=== PATIENT | male | born 2000 | race Caucasian/White ===

== ENCOUNTER 2021-01-28 18:21 | Emergency (ER) | payer BC ==
--- NOTE | 2021-01-28 19:07 | EDM.PDOC ---
ED HPI GENERAL MEDICAL PROBLEM - General Chief Complaint: Respiratory Problem Stated Complaint: COVID SX Time Seen by Provider: 01/28/21 19:07 Source of Information: Reports: Patient History Limitations: Reports: No Limitations - History of Present Illness INITIAL COMMENTS - FREE TEXT/NARRATIVE: 20-year-old male presents to the ED with nasal congestion mild rhinorrhea sore throat for the last 3 days. Today's developed more heaviness in his upper chest and a mild nonproductive cough. Not aware per se of any fever or chills. Appetite is intact with no diarrhea nausea or vomiting. 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 His girlfriend works in healthcare and has been vaccinated. Onset: Gradual Onset Date: 01/25/21 (On third day of nasal congestion and runny nose. Sore throat over the last 2 days) Duration: Day(s):, Getting Worse Location: Reports: Chest (Mild upper anterior chest discomfort with nonproductive cough intermittently) Severity: Mild Improves with: Reports: None Worsens with: Reports: None Context: Denies: Activity, Exercise, Lifting, Sick Contact, Trauma, Other Associated Symptoms: Reports: Chest Pain, Cough (Nonproductive). Denies: No Other Symptoms (Upper anterior chest discomfort), Confusion, cough w sputum, Diaphoresis, Fever/Chills, Headaches, Loss of Appetite, Malaise, Rash, Seizure, Shortness of Breath, Syncope Treatments CLOTH REELER: Reports: Other (see below) (None) Throat Pain Score (Numeric/FACES): 3 - Related Data Allergies Allergy/AdvReac Type Severity Reaction Status Date / Time No Known Allergies Allergy Verified 01/28/21 18:46 Home Meds: Home Meds . [No Known Home Meds] 01/28/21 [History] Past Medical History - Past Health History Medical/Surgical History: Denies Medical/Surgical History - Infectious Disease History Infectious Disease History: Reports: Chicken Pox - Past Surgical History HEENT Surgical History: Reports: Tonsillectomy Social & Family History - Tobacco Use Tobacco Use Status *Q: Current Every Day Tobacco User (In the process of quitting. Currently vaping.) Years of Tobacco use: 2 Packs/Tins Daily: 0.1 - Caffeine Use Caffeine Use: Reports: Energy Drinks, Soda - Recreational Drug Use Recreational Drug Use: No - Living Situation & Occupation Living situation: Reports: Single Occupation: Employed ED ROS GENERAL - Review of Systems Review Of Systems: See Below Constitutional: Reports: Fatigue. Denies: Fever, Chills, Malaise, Weakness, Decreased Appetite, Weight Loss HEENT: Reports: Rhinitis, Sinus Problem, Throat Pain (Nasal congestion sinus congestion throat pain) Respiratory: Reports: Cough (Mild nonproductive cough that started earlier today.) Cardiovascular: Reports: Chest Pain (Upper anterior chest discomfort no true pain). Denies: Blood Pressure Problem Endocrine: Reports: Fatigue GI/Abdominal: Reports: No Symptoms (Mild) : Reports: No Symptoms Musculoskeletal: Reports: No Symptoms Skin: Reports: No Symptoms Neurological: Reports: No Symptoms Psychiatric: Reports: No Symptoms Hematologic/Lymphatic: Reports: No Symptoms Immunologic: Reports: No Symptoms ED EXAM, GENERAL - Physical Exam Exam: See Below Exam Limited By: No Limitations General Appearance: Alert, WD/WN, No Apparent Distress, Other (Temperature is 36.6 degrees heart rate 77 and sinus respiratory is 20 with O2 sats of 97% room air. BP 137/82) Eye Exam: Bilateral Eye: Normal Inspection (No blepharal pallor no scleral icterus), PERRL Ears: Normal TMs Nose: Nasal Drainage (Mild. Clear) Throat/Mouth: Normal Inspection, Normal Lips, Normal Teeth, Other Head: Atraumatic (Oropharynx is mildly erythematous without exudate no signs of bacterial infection), Normocephalic Neck: Normal Inspection, Supple, Non-Tender, Full Range of Motion. No: Lymphadenopathy (L), Lymphadenopathy (R) Respiratory/Chest: No Respiratory Distress, Lungs Clear, Normal Breath Sounds, No Accessory Muscle Use Cardiovascular: Normal Peripheral Pulses, Regular Rate, Rhythm, No Edema, No Gallop, No Murmur, No Rub Peripheral Pulses: 3+: Carotid (L), Carotid (R), Posterior Tibial (L), Posterior Tibial (R), Dorsalis Pedis (L), Dorsalis Pedis (R) GI/Abdominal: Normal Bowel Sounds, Soft, Non-Tender, No Organomegaly, No Distention, No Abnormal Bruit, Pelvis Stable Back Exam: Normal Inspection, Full Range of Motion. No: CVA Tenderness (L), CVA Tenderness (R) Extremities: Normal Inspection, Normal Range of Motion, Non-Tender, No Pedal Edema Neurological: Alert, Oriented, CN II-XII Intact, Normal Cognition Psychiatric: Normal Affect, Normal Mood Skin Exam: Warm, Dry, Intact, Normal Color, No Rash Course - Vital Signs Last Recorded V/S: Last Vital Signs Temp 36.6 C 01/28/21 18:49 Pulse 77 01/28/21 18:49 Resp 20 01/28/21 18:49 BP 137/82 01/28/21 18:49 Pulse Ox 97 01/28/21 18:49 - Orders/Labs/Meds Orders: Active Orders 24 hr Category Date Time Status Chest 1V Frontal [CR] Stat Exams 01/28/21 19:14 Taken Labs: Laboratory Tests 01/28/21 Range/Units 18:40 SARS-CoV-2 RNA (DIANA) Negative (NEGATIVE) - Radiology Interpretation Free Text/Narrative:: 20-year-old male presents to the ED with nasal congestion for the last 3 days and developing sore throat over the last 2 days. Mild upper anterior chest discomfort started today with a nonproductive cough. Not febrile at present and he did not appreciate a fever at home. Appetite is intact with no vomiting or diarrhea. Cold symptoms versus early COVID-19 illness. His girlfriend works in healthcare and therefore he wants to know for sure if he has Covid. Coronavirus has been collected by triage nurse. He will have 1 view anterior chest x-ray done. - Re-Assessments/Exams Free Text/Narrative Re-Assessment/Exam: 01/28/21 20:09 COVID-19 screen is negative. Chest x-ray reveals no cardiomegaly and mediastinum is normal. Visualized lung alfaro are clear with poor inspiratory effort. 01/28/21 20:19 I have discussed the findings with the patient and he will therefore be discharged home. Diagnosis is viral upper respiratory tract infection. May continue Motrin 600 mg every 6 hours. For fever and throat pain relief. Claritin-D 12-hour release tablet once daily every morning for the next 3 to 4 days for decongestant. Departure - Departure Time of Disposition: 20:17 Disposition: Home, Self-Care 01 Condition: Fair Clinical Impression: Viral upper respiratory tract infection with cough - Discharge Information *PRESCRIPTION DRUG MONITORING PROGRAM REVIEWED*: Not Applicable *COPY OF PRESCRIPTION DRUG MONITORING REPORT IN PATIENT APOLLO: Not Applicable Instructions: Viral Respiratory Infection, [id number] Referrals: PCP,None [Primary Care Provider] - Forms: ED Department Discharge Additional Instructions: Evaluation in the emergency room today in regards to possible COVID-19 illness with nasal congestion for the last several days with associated sore throat and perhaps mildly altered taste. Retained ability to eat with no diarrhea or vomiting. Mild upper chest discomfort with cough. COVID-19 screen proved to be negative. Chest x-ray is also normal with no signs of pneumonia. Therefore you have a viral upper respiratory tract infection or bad cold. Continue Motrin 600 mg every 6 hours needed to relieve pain and inflammation. May may medicinal plant picker Claritin-D 24-hour release which she can take every morning as needed for nasal decongestion for the next 3 to 4 days until the cold runs its course. Sepsis Event Note (ED) - Focused Exam Vital Signs: Vital Signs Temp Pulse Resp BP Pulse Ox 01/28/21 18:49 36.6 C 77 20 137/82 97 - My Orders Last 24 Hours: My Active Orders 01/28/21 19:14 Chest 1V Frontal [CR] Stat - Assessment/Plan Last 24 Hours: My Active Orders 01/28/21 19:14 Chest 1V Frontal [CR] Stat
--- NOTE | 2021-01-29 16:38 | CR ---
Chest: Portable view of the chest was obtained. Comparison: No prior chest imaging is available. Heart size and mediastinum are normal. Lungs are clear with no acute parenchymal change. Bony structures show nothing acute. Impression: 1. Nothing acute is seen on portable chest x-ray. Diagnostic code #1
== END 2021-01-28 20:29 | disposition home or self-care (01) ==
LOC: JD.ED 18:21
DX: J06.9 Acute upper respiratory infection, unspecified (principal); Z72.0 Tobacco use; Z20.822 Contact with and (suspected) exposure to COVID-19
CPT/HCPCS: 71045; 71045-26; 99282; 99283-25; U0002

== ENCOUNTER 2021-08-27 07:28 | Emergency (ER) | payer BC ==
[2021-08-27 08:19] LABS: CORONAVIRUS COVID-19 NAA NEGATIVE (NEGATIVE)
[2021-08-27] MEDS ORDERED: Albuterol 6.7 GM Inhaler INH PRN (08:34)
== END 2021-08-27 09:02 | disposition home or self-care (01) ==
LOC: JD.ED 07:28
DX: J20.9 Acute bronchitis, unspecified (principal); R06.2 Wheezing; Z20.822 Contact with and (suspected) exposure to COVID-19
CPT/HCPCS: 0241U; 71046; 94640; 99284; A9270; 99283